=== PATIENT | female | born 1940 ===

== ENCOUNTER 2024-12-16 06:34 | Day surgery (SDC) | payer BC, SELFPAY ==
[2024-12-10 11:18] LABS: Hematocrit 34.6 % (37.0-47.0); Hemoglobin 11.7 g/dL (12.0-16.0); Mean Corp Hgb Conc. 33.8 g/dL (33.0-37.0); Mean Corpuscular Hgb 29.4 pg (27.0-31.0); Mean Corpuscular Volume 86.9 fL (81.0-99.0); Mean Platelet Volume 9.4 fL (7.4-10.4); Platelet Count 383 10^3/uL (130-400); Red Blood Cell Count 3.98 10^6/uL (4.20-5.40); Red Cell Dist. Width 12.7 % (11.5-14.5); White Blood Cell Count 12.6 10^3/uL (4.8-10.8)
[2024-12-10 11:55] LABS: Blood Urea Nitrogen 21 mg/dl (7-17); Calcium 9.4 mg/dl (8.4-10.2); Carbon Dioxide 21 mmol/L (22-30); Chloride 104 mmol/L (98-107); Glucose 125 mg/dl (70-99); Potassium 5.3 mmol/L (3.5-5.1); Sodium 136 mmol/L (135-145); eGFR 44.64
[2024-12-10 13:34] VITALS: BMI 28.4
--- NOTE | 2024-12-11 08:09 | PTCARENOTE ---
Patients 12/10 Creat- 1.2; GFR-44.64, Indira @ Dr. Byrnes office notified
--- NOTE | 2024-12-11 10:21 | PTCARENOTE ---
Abn ECG, Dr. Schulz made aware and stated 'it would be prudent to investigate'. Indira at Dr. Dwyer's office notified.
--- NOTE | 2024-12-11 16:19 | PTCARENOTE ---
Abnormal ECG done 12/10/[address] De La Rosa, no further interventions requested.
[2024-12-16] VITALS (9 sets, daily range): BP systolic 118–153; BP diastolic 51–68; BMI 28.4
[2024-12-16 09:58] LABS: Glucose - Point of Care 129 mg/dl (70-99)
[2024-12-16] MEDS: NORMOSOL-R/PLASMALYTE-A 1000 IV (10:13)
[2024-12-16] MEDS: Pyridium 200 MG PO (10:14)
[2024-12-16 11:21] LABS: Glucose - Point of Care 118 mg/dl (70-99)
== END 2024-12-16 13:20 | disposition home or self-care (01) ==
LOC: SDS 06:34
PROVIDERS: ATTENDING PHYSICIAN Obstetrics & Gynecology; FAMILY PHYSICIAN Internal Medicine
DX: N39.3 Stress incontinence (female) (male) (principal); N36.41 Hypermobility of urethra
CPT/HCPCS: 57288; 36415; 80048; 82962; 85027; 86850; 86900; 86901; 93005; C1771